=== PATIENT | male | born 1970 | race Caucasian/White ===

== ENCOUNTER 2018-08-08 21:03 | Emergency (ER) | payer SELFPAY ==
[~2018-08-08] VITALS: Ht 185.4 cm; Wt 79.4 kg
[2018-08-08 21:12] VITALS: BP 122/72
[2018-08-09] MEDS ORDERED: methylPREDNISolone SOD SUCC 125 MG/2 ML VL IM ONE (04:15)
[2018-08-09] MEDS ORDERED: BACLOFEN 10 MG TAB PO ONE (04:15)
[2018-08-09] MEDS ORDERED: SODIUM CHLORIDE 0.9% 1,000 ML IV ONE (04:30)
== END 2018-08-09 05:28 | disposition home or self-care (01) ==
LOC: EDBD 21:03 → ER 21:07
DX: M79.672 Pain in left foot (principal); M79.671 Pain in right foot; E86.0 Dehydration; F15.10 Other stimulant abuse, uncomplicated
CPT/HCPCS: 96360; 96372; 99283; J7030